=== PATIENT | female | born 1950 | race African-American/Black ===

== ENCOUNTER → 2018-05-08 | Outpatient (CLI) | payer MEDICARE ==
--- NOTE | 2018-05-08 12:51 | PCVCIMAG ---
APPROVED REPORT Study performed: 05/08/2018 09:39:24 Exam: Stress Echocardiogram Indication: Chest pain , Dyspnea , Hypertension Patient Location: Echo lab Stress Nurse: Janle Gallagher RN Status: routine Ht: 5 ft 6 in HR: 67 bpm BP: 138/82 mmHg Rhythm: NSR Procedure The patient underwent an Exercise Stress Test using the Tate Protocol. Blood pressure, heart rate, and EKG were monitored. An Echocardiogram was performed by reproduction technician in four stages in quad fashion. At peak stress, four selected images were obtained and placed side by side with resting images for comparison. Stress Test Details Stress Test: Exercise stress testing was performed using a Tate protocol. HR Resting HR: 66 bpmMax Heart Rate (APMHR): 151 bpm Max HR Achieved: 146 bpmTarget HR (85% APMHR): 128 bpm % of APMHR: 96 Recovery HR: 80 bpm HR response to stress: Normal HR response to stress BP Resting BP: 138/82 mmHg Max BP: 182/86 mmHg Recovery BP: 160/80 mmHg ECG Resting ECG: Sinus rhythm with LVH Stress ECG: Sinus Rhythm ST Change: Downsloping ST depression Maximum ST Deviation: 4 mm Arrhythmia: Occasional PVC's Recovery ECG: Sinus Rhythm Recovery ST Change: Downsloping ST depression Recovery ST Deviation: 2 mm Clinical Reason for Termination: Maximal effort Stress Symptoms: Dyspnea Exercise duration: 6 min 08 sec Highest Stage Achieved: Stage 2: 2.5 mph at 12% grade. Exercise capacity: 7.30 METs Overall Exercise Capacity for Age: Average Angina Score: None Stress ECG Conclusion Clinical: Non-ischemic Electrocardiographic response: Ischemic Aldana treadmill score predicts high risk for adverse myocardial events. Aldana Treadmill Score is -14.0 which is High risk. Pre-Stress Echo The resting Echocardiogram showed normal left ventricular contractility with an estimated Ejection Fraction of about 55-60%. Post-Stress Echo The stress Echocardiogram showed abnormal left ventricular contractility with an estimated Ejection Fraction of about 45-50%. The stress Echocardiogram demonstrated wall motion abnormality in the inferior and lateral cardenas . Conclusion Clinical Response: Non-ischemic Exercise Capacity: Average Stress ECG Response: Ischemic Stress Echo Images: Ischemic Abnormal stress echocardiogram with maximal exercise stress. Aldana treadmill score predicts high risk for adverse myocardial events. <Conclusion> Abnormal stress echocardiogram with maximal exercise stress. Aldana treadmill score predicts high risk for adverse myocardial events.
== END | disposition home or self-care (01) ==
LOC: PCVCIMAG 14:35
PROVIDERS: ATTEND Internal Medicine
DX: R94.39 Abnormal result of other cardiovascular function study (principal); R07.2 Precordial pain; I11.9 Hypertensive heart disease without heart failure; I50.9 Heart failure, unspecified; E78.5 Hyperlipidemia, unspecified; Z79.82 Long term (current) use of aspirin; Z79.899 Other long term (current) drug therapy
CPT/HCPCS: 36415; 93005; 93325; 93351; G0463

== ENCOUNTER → 2018-06-30 | Outpatient (CLI) | payer MEDICARE | END | disposition home or self-care (01) | LOC: PCVCCLINIC 14:49 | PROVIDERS: ATTEND Internal Medicine | DX: I25.10 Atherosclerotic heart disease of native coronary artery without angina pectoris (principal); I11.0 Hypertensive heart disease with heart failure; I50.32 Chronic diastolic (congestive) heart failure; E78.5 Hyperlipidemia, unspecified; E11.9 Type 2 diabetes mellitus without complications; I70.1 Atherosclerosis of renal artery; F17.200 Nicotine dependence, unspecified, uncomplicated; Z79.4 Long term (current) use of insulin | CPT/HCPCS: 93005; G0463 ==

== ENCOUNTER → 2018-07-09 | Outpatient (CLI) | payer MEDICARE | END | disposition home or self-care (01) | LOC: PCVCCLINIC 15:00 | PROVIDERS: ATTEND Internal Medicine | DX: I25.10 Atherosclerotic heart disease of native coronary artery without angina pectoris (principal); I11.0 Hypertensive heart disease with heart failure; I50.32 Chronic diastolic (congestive) heart failure; Z79.82 Long term (current) use of aspirin | CPT/HCPCS: G0463 ==

== ENCOUNTER → 2018-07-10 | Outpatient (CLI) | payer MEDICARE ==
--- NOTE | 2018-07-10 10:47 | PCVCIMAG ---
EXAM: RIGHT SUPERFICIAL VENOUS DUPLEX INDICATION: Leg pain and swelling. FINDINGS: Right leg: No thrombus in the common femoral, main femoral, or popliteal veins. These veins are compressible. Right Great Saphenous Vein: At the saphenofemoral junction the diameter is 8.9 mm, in the mid thigh it is 4.4 mm, and in the calf it is 4.8 mm. There is not significant venous insufficiency/reflux throughout. Venous insufficiency/reflux duration is 0 seconds. Right Small Saphenous Vein: At the saphenopopliteal junction the diameter is 6.0 mm, and in the calf it is 5.5 mm. There is not significant venous insufficiency/reflux throughout. Venous insufficiency/reflux duration is 0 seconds. There is a cranial extension present. IMPRESSION: Right Great Saphenous Vein: No significant venous insufficiency/reflux is present as noted above. Right Small Saphenous Vein: No significant venous insufficiency/reflux is present as noted above. LOC:[place] [id number]
--- NOTE | 2018-07-10 10:49 | PCVCIMAG ---
EXAM: RIGHT LOWER EXTREMITY ARTERIAL DUPLEX INDICATION: Peripheral Arterial Disease. Leg pain. Posterior right ankle ulcer. FINDINGS: Right Leg: Common femoral and profunda femoral arteries are patent. Superficial femoral artery and popliteal artery are patent. Occlusion throughout the anterior tibial artery. The peroneal artery and posterior tibial artery are patent. 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 Otherwise no flow limiting stenosis in the right lower extremity. LOC:[place] [id number]
== END | disposition home or self-care (01) ==
LOC: PCVCIMAG 09:33
PROVIDERS: ATTEND Internal Medicine
DX: S81.801A Unspecified open wound, right lower leg, initial encounter (principal); I73.9 Peripheral vascular disease, unspecified; L03.115 Cellulitis of right lower limb; R60.0 Localized edema; M79.604 Pain in right leg; X58.XXXA Exposure to other specified factors, initial encounter; Y93.89 Activity, other specified; Y92.89 Other specified places as the place of occurrence of the external cause; Y99.8 Other external cause status
CPT/HCPCS: 93926; 93971

== ENCOUNTER → 2019-07-01 | Outpatient (CLI) | payer MEDICARE | END | disposition home or self-care (01) | LOC: PCVCCLINIC 15:38 | PROVIDERS: ATTEND Internal Medicine | DX: I25.10 Atherosclerotic heart disease of native coronary artery without angina pectoris (principal); I11.0 Hypertensive heart disease with heart failure; I50.32 Chronic diastolic (congestive) heart failure; E78.5 Hyperlipidemia, unspecified; E11.9 Type 2 diabetes mellitus without complications; Z79.899 Other long term (current) drug therapy | CPT/HCPCS: 93005; G0463 ==